=== PATIENT | female | born 1975 | race Caucasian/White ===

== ENCOUNTER 2019-03-12 07:03 | Day surgery (SDC) | payer OTHER ==
[2019-03-09 15:49] VITALS: BMI 33.8
[2019-03-12] MEDS ORDERED: BUPIVACAINE HCL/PF 2.5 MG/ML - 30 ML VIAL IJ ONE (08:44)
[2019-03-12] MEDS ORDERED: MIDAZOLAM HCL 2 MG/2 ML SINGLE DOSE VIAL ONE (08:51)
[2019-03-12] MEDS ORDERED: PROPOFOL 20 ML ONE (09:01)
[2019-03-12] MEDS ORDERED: ceFAZolin SODIUM 1 GM VIAL ONE (09:06)
[2019-03-12] MEDS ORDERED: ONDANSETRON 4 MG/2 ML VIAL ONE ×2 (09:10→09:41)
[2019-03-12] MEDS ORDERED: DEXAMETHASONE SOD PHOSPHATE 4 MG/1 ML VIAL ONE (09:10)
[2019-03-12] MEDS ORDERED: KETOROLAC TROMETHAMINE 30 MG/1 ML VIAL ONE (09:27)
[2019-03-12] MEDS ORDERED: BUPIVACAINE HCL/PF 0.25% (2.5MG/ML) 10 ML VIAL IJ ONE (09:29)
[2019-03-12] MEDS ORDERED: oxyCODONE HCL 5 MG TABLET PO PRN ×2 (09:51)
[2019-03-12] MEDS ORDERED: PROMETHAZINE HCL 25 MG/1 ML VIAL IVPUSH PRN (09:51)
[2019-03-12] MEDS ORDERED: ONDANSETRON 4 MG/2 ML VIAL IVPUSH PRN (09:51)
[2019-03-12 11:28] VITALS: PULSE 80; TEMP 97.7
[2019-03-12] MEDS ORDERED: oxyCODONE HCL 5 MG TABLET PO ONE (11:30)
[2019-03-12] MEDS ORDERED: oxyCODONE HCL 5 MG TABLET ONE (11:34)
[2019-03-12 12:04] VITALS: BP 110/74
--- NOTE | 2019-03-12 13:11 | OP ---
DATE OF OPERATION: 03/12/2019 SURGEON: Rosendo Alcantara MD ASSISSTANT: THOMAS Rojo PREOPERATIVE DIAGNOSIS: 1. Right knee cartilage injury. 2. Right knee synovitis. POSTOPERATIVE DIAGNOSIS: 1. Right knee cartilage injury. 2. Right knee synovitis. PROCEDURE: 1. Right knee arthroscopy with chondroplasty and abrasoplasty (CPT code 37061). 2. Right knee arthroscopy with synovectomy (CPT code 05761). FINDINGS: 1. Previous arthroscopy. 2. Medial meniscus anterior horn tear/minor. 3. Lateral meniscus central body tear/minor. 4. Synovitis, patellofemoral, medial, lateral, and notch area with the most pronounced anteriorly. 5. A 6 cm x 4 cm anterior medial femoral condyle injury with flap of cartilage going to grade 4 anteriorly. Central grade 2-3 changes around the remaining portion of the injury. 6. ACL and PCL intact. 7. Minimal cartilage changes lateral joint line. 8. Minimal cartilage changes patellofemoral joint. DESCRIPTION OF PROCEDURE: Informed consent was obtained. The patient came to the operating room, where the lower extremity was prepped and draped in a sterile fashion. A tourniquet was placed on the upper thigh, but not inflated. Using standard arthroscopic technique, a lateral incision and portal was made to allow for introduction of the camera into the suprapatellar bursa. This was then taken to the medial joint line, where under direct visualization, a medial incision and portal was made. Excessive synovium noted in the medial, lateral and patellofemoral and notch area was removed by an upbiter, shaver and Bovie cautery. This was found to bring in inflammatory tissue into the joint surface, a source of pain and dysfunction. Probing of the medial and lateral meniscus found tears, as described in the findings. These were removed with the upbiter and shaver and taken back to a stable rim. Grade 2 to 3 degenerative changes were treated with a chondroplasty, removing all flaking surfaces with low-setting Bovie along the periphery to prevent further flaking. Grade 4 changes, as noted, were treated with an abrasoplasty, creating a bleeding surface at the bone/cartilage interface. Aggressive debridement with shaver/corrine created bleeding surface. Micro fracture also done when indicated in findings. All areas of the knee were once again reexamined. The knee was then drained and a single suture was placed in all portals. A sterile dressing was placed and the patient was transferred to the recovery room without complication. The PA listed above was present and assisted at surgery. Their presence was absolutely medically necessary for the completion of the procedure. They helped hold the arthroscopy, pass instruments (and implants when indicated) and the procedure could not have been completed without their assistance. ROSENDO ALCANTARA M.D. [id number]
--- NOTE | 2019-03-18 14:45 | PATH ---
Surgical Pathology Report Patient Name: PHOEBE BENAVIDES Med. Rec. #: [id number] /Age/Gender: 1975 (Age: 43) / F Account: [id number] Location: [facility] Taken: 03/12/2019 Received: 03/12/2019 Reported: 03/18/2019 Physicians: Rosendo Hall M.D. Specimen(s) Received RIGHT KNEE SHAVINGS Clinical History Right knee internal derangement Final Diagnosis RIGHT KNEE SHAVINGS: FRAGMENTS OF FIBROSYNOVIAL TISSUE WITH FOCAL FIBROSIS. SEPARATE FRAGMENTS OF CARTILAGINOUS TISSUE WITH DEGENERATIVE CHANGE. Electronically Signed Alba Shipman M.D. Gross Description Received in formalin, labeled "right knee shavings," is a 2.0 x 1.5 x 0.2 cm. aggregate of rivas-yellow soft tissue fragments. The specimen is entirely submitted in one cassette. /03/16/201903/16/2019
== END 2019-03-12 12:05 | disposition home or self-care (01) ==
LOC: FASU 07:03
PROVIDERS: ATTEND Orthopaedic Surgery
PROC: 0SBC4ZZ Excision of Right Knee Joint, Percutaneous Endoscopic Approach (ICD-10-PCS; 2019-03-12)
PROC: 0SBC4ZZ Excision of Right Knee Joint, Percutaneous Endoscopic Approach (ICD-10-PCS; 2019-03-12)
PROC: 0SBC4ZZ Excision of Right Knee Joint, Percutaneous Endoscopic Approach (ICD-10-PCS; principal; 2019-03-12 08:30)
DX: S83.241A Other tear of medial meniscus, current injury, right knee, initial encounter (principal); S83.281A Other tear of lateral meniscus, current injury, right knee, initial encounter; S83.8X1A Sprain of other specified parts of right knee, initial encounter; M65.861 Other synovitis and tenosynovitis, right lower leg; X58.XXXA Exposure to other specified factors, initial encounter; Y93.9 Activity, unspecified; Y92.9 Unspecified place or not applicable
CPT/HCPCS: 84703; 88304-TC; 94760

== ENCOUNTER 2021-04-09 04:33 | Day surgery (SDC) | payer OTHER ==
[2021-04-04 13:02] VITALS: BMI 33.5
[2021-04-09] MEDS ORDERED: PROPOFOL 20 ML ONE ×2 (11:20→11:31)
[2021-04-09] MEDS ORDERED: ROCURONIUM BROMIDE 100 MG/10 ML VIAL ONE (11:31)
[2021-04-09] MEDS ORDERED: MIDAZOLAM HCL 2 MG/2 ML SINGLE DOSE VIAL ONE (11:31)
[2021-04-09] MEDS ORDERED: ONDANSETRON 4 MG/2 ML VIAL ONE (11:35)
[2021-04-09] MEDS ORDERED: DEXAMETHASONE SOD PHOSPHATE 4 MG/1 ML VIAL ONE (11:35)
[2021-04-09] MEDS ORDERED: LIDOCAINE HCL/PF 2% SDV 5ML VIAL ONE (11:35)
[2021-04-09] MEDS ORDERED: ceFAZolin SODIUM 1 GM VIAL ONE (11:35)
[2021-04-09] MEDS ORDERED: IBUPROFEN 400 MG TABLET (FP) PO PRN (11:38)
[2021-04-09] MEDS ORDERED: ACETAMINOPHEN 325 MG TABLET (FP) PO PRN (11:38)
[2021-04-09] MEDS ORDERED: GLYCOPYRROLATE 0.2 MG/1 ML VIAL ONE (12:36)
[2021-04-09 16:54] VITALS: BP 100/60; PULSE 60; TEMP 97.6
== END 2021-04-09 16:45 | disposition home or self-care (01) ==
LOC: JASU-SURG 04:33
PROVIDERS: ATTEND Obstetrics & Gynecology
PROC: 0UB98ZX Excision of Uterus, Via Natural or Artificial Opening Endoscopic, Diagnostic (ICD-10-PCS; principal; 2021-04-09 11:30)
PROC: 0UDB8ZX Extraction of Endometrium, Via Natural or Artificial Opening Endoscopic, Diagnostic (ICD-10-PCS; 2021-04-09 11:30)
DX: N84.0 Polyp of corpus uteri (principal)
CPT/HCPCS: 36415; 84703; 86850; 86900; 86901; 88305-TC; 94760